=== PATIENT | male | born 1950 | race Caucasian/White ===

== ENCOUNTER 2019-08-17 21:40 | Inpatient (IN) | payer OTHER, BC ==
[2019-08-17 22:51] LABS: BASO % 0.7 % (0-2.0); EOS % 0.5 % (0-4.5); HEMATOCRIT 44.7 % (35.4-49); HEMOGLOBIN 15.2 GM/dL (11.7-16.9); LYMPH % 12.4 % (8-40); MCH 32.4 pg (25.7-33.7); MEAN CELL VOLUME 95.4 fl (80-96); MEAN PLT VOLUME 8.9 fl (7.5-11.1); MONO % 6.3 % (3.8-10.2); NEUT % 80.1 % (42.8-82.8); PLATELET COUNT 154 K/MM3 (134-434); RBC 4.68 M/mm3 (4.00-5.60); RDW 13.1 % (11.9-15.9); WHITE BLOOD COUNT 10.5 K/mm3 (4.0-10.0)
--- NOTE | 2019-08-17 22:58 | PDOC ---
History of Present Illness <Yesenia Rizzo - Last Filed: 08/18/19 01:07> - History of Present Illness Initial Comments: 08/19/19 22:31 69M PMH HTN, HLD, CHF (EF 30%), DM BIBEMS w/ crushing nonradiating substernal chest pain that occurred when pt was walking up stairs. DUring episode, pt felt short of breath. Experienced chest pain for about 5 minutes before receiving nitroglycerin, which completely resolved the pain and shortness of breath. Received 3 ASA en route. Currently not complaining of symptoms. Has had similar exertional symptoms in the past but no h/o ACS or stents. Pt lives in [place] w/ medical care there. Recently flew up to [place] for holidays and has been c/o MCDANIEL. Endorses chronic unchanged b/l LE edema. Denies n/v, headache, lightheadedness, dizziness, weakness. Denies abd pain. Of note, pt had just finished a large dinner 45 minutes prior to onset. NKDA 1.5PPD smoker Denies FHx cardiac dz <Efraín Gonzalez - Last Filed: 08/19/19 22:31> - General Chief Complaint: Chest Pain Stated Complaint: CHEST PAIN Time Seen by Provider: 08/17/19 21:50 Past History <Yesenia Rizzo - Last Filed: 08/18/19 01:07> - Psycho Social/Smoking Cessation Hx Smoking History: Current every day smoker Number of Cigarettes Smoked Daily: 30 Information on smoking cessation initiated: No Hx Alcohol Use: No Drug/Substance Use Hx: No <Efraín Gonzalez - Last Filed: 08/19/19 22:31> - Past Medical History Allergies/Adverse Reactions: Allergies Allergy/AdvReac Type Severity Reaction Status Date / Time No Known Allergies Allergy Verified 08/17/19 22:01 Home Medications: Ambulatory Orders Furosemide [Lasix -] 20 mg PO DAILY 08/18/19 Glimepiride [Amaryl -] 4 mg PO DAILY 08/18/19 Potassium Chloride [K-Tab ER] 20 meq PO DAILY 08/18/19 Rosuvastatin Calcium [Crestor] 10 mg PO HS 08/18/19 traZODone HCL [Trazodone HCl] 50 mg PO DAILY PRN 08/18/19 Review of Systems - Review of Systems Comments:: 08/19/19 22:31 ROS: CONSTITUTIONAL: Denies F / C HEENT: Denies headache, lightheadedness, dizziness, changes in vision / hearing RESP: Endorses since resolved SOB. Endorses recent MCDANIEL. CARD: Endorses since resolved chest pain GI: Denies N / V / D, abdominal pain : Denies dysuria SKIN: Denies rashes NEURO: Denies numbness, tingling, weakness MSK: Denies back pain <Efraín Gonzalez - Last Filed: 08/19/19 22:31> *Physical Exam - Vital Signs Last Vital Signs Temp Pulse Resp BP Pulse Ox 97.6 F 111 H 18 122/58 L 99 08/17/19 22:01 08/17/19 22:01 08/17/19 22:01 08/17/19 22:01 08/17/19 22:01 <Yesenia Rizzo Sovikimu - Last Filed: 08/18/19 01:07> - Vital Signs Last Vital Signs Temp Pulse Resp BP Pulse Ox 97.6 F 111 H 18 122/58 L 99 08/17/19 22:01 08/17/19 22:01 08/17/19 22:01 08/17/19 22:01 08/17/19 22:01 - Physical Exam 08/19/19 22:31 PE: GEN: NAD. AAOx3 HEENT: NC/AT, EOMI, PERRLA. No facial asymmetry. Normal voice. Supple neck w/ FROM. CV: S1/S2, RRR, no m/r/g LUNG: CTAB, no wheezes, crackles, rales, rhonchi. GI: soft, ndnt, +BS, no guarding, no rebound. EXTREMITIES: 2+ radial pulses. 1+ pitting edema of the b/l LEs (pt states chronic, unchanged). No obvious deformities of all extremities. SKIN: warm, dry, normal turgor PSYCH: normal mood and affect NEURO: Moving all extremities well. <Efraín Gonzalez - Last Filed: 08/19/19 22:31> Heart Score/ECG Review - History History: Moderately suspicious - Electrocardiogram EKG: Non specific repolarization disturbance - Age Age: >/= 65 - Risk Factors Risk Factors Heart Score: Yes Hx Hypercholesterolemia, Yes Hx Hypertension, Yes Hx Diabetes, Yes Smoking History Based on the list above the patient has:: >/=3 risk factors or Hx atherosclerotic disease - Troponin Troponin: </= normal limit - Score Heart Score - Total: 6 <Efraín Gonzalez - Last Filed: 08/19/19 22:31> ED Treatment Course - LABORATORY CBC & Chemistry Diagram: 08/17/19 22:40 08/17/19 23:45 - ADDITIONAL ORDERS Additional order review: Laboratory Results 08/18/19 08/17/19 08/17/19 00:00 23:45 23:45 PT with INR INR PTT (Actin FS) D-Dimer < 215 Sodium 138 Potassium 4.1 Chloride 103 Carbon Dioxide 26 Anion Gap 9 BUN 17.5 Creatinine 1.0 Est GFR (CKD-EPI)AfAm 89.23 Est GFR (CKD-EPI)NonAf 76.99 Random Glucose 181 H Calcium 8.4 L Magnesium 2.4 Total Bilirubin 0.4 AST 16 ALT 24 Alkaline Phosphatase 64 Creatine Kinase 125 Creatine Kinase Index CK-MB (CK-2) Troponin I 0.04 B-Natriuretic Peptide 1188.2 H Total Protein 6.7 Albumin 3.6 08/17/19 08/17/19 08/17/19 23:45 22:40 22:40 PT with INR 12.00 INR 1.02 PTT (Actin FS) 39.5 H D-Dimer Cancelled Sodium Potassium Chloride Carbon Dioxide Anion Gap BUN Creatinine Est GFR (CKD-EPI)AfAm Est GFR (CKD-EPI)NonAf Random Glucose Calcium Magnesium Cancelled Total Bilirubin AST ALT Alkaline Phosphatase Creatine Kinase Creatine Kinase Index CK-MB (CK-2) Troponin I B-Natriuretic Peptide Total Protein Albumin 08/17/19 08/17/19 22:40 22:40 PT with INR INR PTT (Actin FS) D-Dimer Sodium Cancelled Potassium Cancelled Chloride Cancelled Carbon Dioxide Cancelled Anion Gap Cancelled BUN Cancelled Creatinine Cancelled Est GFR (CKD-EPI)AfAm Cancelled Est GFR (CKD-EPI)NonAf Cancelled Random Glucose Cancelled Calcium Cancelled Magnesium Cancelled Total Bilirubin Cancelled AST Cancelled ALT Cancelled Alkaline Phosphatase Cancelled Creatine Kinase 423 H Creatine Kinase Index No Result Required. CK-MB (CK-2) No Result Required. Troponin I < 0.02 B-Natriuretic Peptide Total Protein Cancelled Albumin Cancelled 08/17/19 22:40 RBC 4.68 MCV 95.4 MCHC 34.0 RDW 13.1 MPV 8.9 Neutrophils % 80.1 Lymphocytes % 12.4 Monocytes % 6.3 Eosinophils % 0.5 Basophils % 0.7 - RADIOLOGY Radiology Studies Ordered: Category Date Time Status CHEST X-RAY PORTABLE* [RAD] Stat Radiology 08/17/19 22:03 Taken <Yesenia Rizzo - Last Filed: 08/18/19 01:07> - LABORATORY CBC & Chemistry Diagram: 08/19/19 06:14 08/19/19 06:14 <Efraín Gonzalez - Last Filed: 08/19/19 22:31> Medical Decision Making - Medical Decision Making 08/17/19 22:35 MDM: 69M HTN, HLD, CHF, DM, 1.5PPD smoker BIBEMS w/ exertional substernal chest pain relieved after nitro. Received ASA and nitro en route. Concerning hx for ACS. Given age, tachycardia, and recent travel considering VTE - CBC, CMP, Cardiac, Coag - EKG - CXR - Admit tele // ADMITTED Tele <Efraín Gonzalez - Last Filed: 08/19/19 22:31> Discharge - Discharge Information Problems reviewed: Yes - Admission Yes <Yesenia Rizzo - Last Filed: 08/18/19 01:07> - Discharge Information Problems reviewed: Yes <Efraín Gonzalez - Last Filed: 08/19/19 22:31> - Discharge Information Clinical Impression/Diagnosis: Chest pain Qualifiers: Chest pain type: chest pain due to myocardial ischemia Ischemic chest pain type : stable angina pectoris Qualified Code(s): I20.8 - Other forms of angina pectoris Condition: Guarded
--- NOTE | 2019-08-17 23:11 | PDOC ---
Documentation entered by Samantha Still SCRIBE, acting as scribe for Yesenia Rizzo MD. Yesenia Rizzo MD: This documentation has been prepared by the Tessy darling Nirvannie, SCRIBE, under my direction and personally reviewed by me in its entirety. I confirm that the documentation accurately reflects all work, treatment, procedures, and medical decision making performed by me. Attending Attestation - Resident Resident Name: Efraín Gonzalez - ED Attending Attestation I have performed the following: I have examined & evaluated the patient, The case was reviewed & discussed with the resident, I agree w/resident's findings & plan, Exceptions are as noted - HPI HPI: 08/17/19 23:22 69YOM with significant past medical history of hypertension, hyperlipidemia, DM , and currently being worked up for possible CHF (EF 30%) who presents to the ED via EMS with substernal, nonradiating chest pain described as a crushing sensation with associated shortness of breath while climbing approximately 20- 23 steps lasting 5 min. Patient notes his symptoms were relieved with Nitroglycerin and 243mg of Aspirin. Family at bedside notes he recently had dinner prior to the onset and on the car ride home prior to the chest pain he experienced an episode of left arm and finger numbness while on the 20 min car ride home after bracing it on the middle console. He notes a [address] from [place] which he stopped halfway and moved around. Patient is currently visiting from [place] and had medical clearance from his doctors, he was recently treated for URI symptoms with a Z-Pack. He has a pending appointment in [place] 09/12 with a animal care provider. While in the ED, patient notes his chest pain is a 0/10. Denies fever, chills, palpitations, dizziness, weakness, N, V, D, abdominal pain , bladder and bowel problems, leg swelling, No sick contacts. No new changes in medications. Allergies: None Past Medical History: Hypertension, hyperlipidemia, DM, and currently being worked up for possible CHF (EF 30%) Social history: Lives with family. +1.5 pack/day tobacco smoker. No ETOH or drug use. Surgical history: None reported. Meds: as documented in EMR PMD: [place]. - Physicial Exam PE: 08/17/19 23:11 Agree with the resident's HPI and PE as documented in the electronic medical record. NAD, well appearing, EOMI, PERRL, nl conjunctiva, anicteric; neck supple. lungs clear, +Tachycardic, abdomen soft nontender. +Ventral hernia. no rebound, guarding. Back nontender. [place] x4, no focal neuro deficits. 1+ LE edema. normal color for ethnicity, WWP. - Medical Decision Making 08/17/19 23:08 Vital Signs Temp Pulse Resp BP Pulse Ox 97.6 F 111 H 18 122/58 L 99 08/17/19 22:01 08/17/19 22:01 08/17/19 22:01 08/17/19 22:01 08/17/19 22:01 Vital signs notable for normotension, tachycardia 111 bpm, afebrile, no respiratory distress. DDx chest pain: ACS, coronary vasospasm, NSTEMI, arrhythmia, unstable angina, PE , dissection, PUD, esophageal spasm, GERD, gastritis, costochondritis, pneumonia , pleurisy, pericarditis/myocarditis. dehydration, electrolyte/metabolic derangements. PTX, CHF,pulmonary edema, pleurisy, pneumonia, viral syndrome. effusion. anemia, electrolyte/metabolic derangements. Considered but clinically doubt based on HPI and PE: Low suspicion for pulmonary embolism or dissection. EKG sinus tachycardia at 108 bpm, no interval abnormalities, narrow QRS, Q waves and TWI in III, AVF - no prior Chest pain HEART score 6 which denotes moderate risk for ACS Given risk factors including comorbidities, gender, family and tobacco use. ALREADY received nitro x1 SL and ASA full dose [employer] with EMS no active chest pain here dimer neg, unlikely PE initial trop neg, 2nd one after hemolyzed sample sent , uptrending to 0.04 , still neg. will need further trending/serials does not appear fluid overloaded, no diuresis for now. Plan for admit observation, possible Stress testing, to r/o ischemia, serial trops and EKG/tele monitoring for typical ACS vs CHF. ASA administered by EMS, pain controlled, discussion with patient and family at bedside, made aware of impression and plan, questions answered. admitting to Dr Gerardo, hospitalist. 08/18/19 01:08 08/18/19 01:09 Heart Score/ECG Review - History History: Moderately suspicious - Electrocardiogram EKG: Non specific repolarization disturbance - Age Age: >/= 65 - Risk Factors Risk Factors Heart Score: Yes Hx Hypercholesterolemia, Yes Hx Hypertension, Yes Hx Diabetes, Yes Smoking History Based on the list above the patient has:: >/=3 risk factors or Hx atherosclerotic disease - Troponin Troponin: </= normal limit - Score Heart Score - Total: 6 #1 ECG reviewed & interpreted by me at: 21:50 General ECG Interpretation: Sinus Rhythm, Normal Intervals Compared to previous ECG there are: Previous ECG unavail 08/17/19 23:12 EKG sinus tachycardia at 108 bpm, no interval abnormalities, narrow QRS, Q waves and TWI in III, AVF - no prior
[2019-08-18 00:17] LABS: INR 1.02 (0.83-1.09)
[2019-08-18 00:20] LABS: ACTIVATED PTT 39.5 SECONDS (25.2-36.5)
[2019-08-18 00:27] LABS: ALBUMIN 3.6 g/dl (3.4-5.0); BILIRUBIN,TOTAL 0.4 mg/dL (0.2-1); BLOOD UREA NITROGEN 17.5 mg/dL (7-18); CALCIUM 8.4 mg/dL (8.5-10.1); MAGNESIUM 2.4 mg/dL (1.8-2.4); POTASSIUM 4.1 mmol/L (3.5-5.1); TOT PROT 6.7 g/dl (6.4-8.2)
--- NOTE | 2019-08-18 01:22 | PN ---
Teaching Attending Note Name of Resident: Benito Hobbs ATTENDING PHYSICIAN STATEMENT I saw and evaluated the patient. I reviewed the resident's note and discussed the case with the resident. I agree with the resident's findings and plan as documented. SUBJECTIVE: Patient is a 69 year old man with a PMH of Hypertension, Hyperlipidemia, Tobacco use, NIDDM, and CHF (EF 30%) who presents to the ER via EMS with substernal, nonradiating chest pain described as a crushing sensation with associated shortness of breath while climbing approximately 20-23 steps lasting 5 min. Patient notes his symptoms were relieved with Nitroglycerin and Aspirin. Family at bedside notes he recently had dinner prior to the onset and on the car ride home prior to the chest pain he experienced an episode of left arm and finger numbness while on the 20 min car ride home after bracing it on the middle console. He notes a [address] from [place] which he stopped half- way and moved around. Patient is currently visiting from [place] and had medical clearance from his doctors. He was recently treated for URI symptoms with a Z-Pack. He has a pending appointment in [place] 09/12 with a motion picture commentator. While in the ER, patient notes his chest pain is a 0/10. Denies fever, chills, palpitations, dizziness, weakness, nausea, vomiting, diarrhea, abdominal pain, bladder and bowel problems, leg swelling, No sick contacts. No new changes in medications. Denies alcohol or illicit drug use. OBJECTIVE: Alert Vital Signs Period Temp Pulse Resp BP Sys/Sanchez Pulse Ox Last 24 Hr 97.6 F 111 18 122/58 99 HEENT: No Jaundice, eye redness or discharge, PERRLA, EOMI. Normocephalic, atraumatic. External ears are normal and hearing is grossly intact. No nasal discharge. Neck: Supple, nontender. No palpable adenopathy or thyromegaly. No JVD Chest: Good effort. Clear to auscultation and percussion. Heart: Regular. No S3, rub or murmur Abdomen: Not distended, soft, nontender and no HSM. No rebound or guarding. Normal bowel sounds. Ext: Peripheral pulses intact. Leg edema. Skin: Warm and dry. No petechiae, rash or ecchymosis. Neuro: Alert. Oriented x3. CN 2-12 grossly intact. Sensation grossly intact in all four extremities and DTR are symmetric. Psych: Appropriate mood and affect. Good insight. Abnormal Lab Results 08/17/19 08/17/19 08/17/19 22:40 22:40 23:45 WBC 10.5 H Absolute Neuts (auto) 8.4 H PTT (Actin FS) 39.5 H Random Glucose Calcium Creatine Kinase 423 H B-Natriuretic Peptide 08/17/19 08/17/19 23:45 23:45 WBC Absolute Neuts (auto) PTT (Actin FS) Random Glucose 181 H Calcium 8.4 L Creatine Kinase B-Natriuretic Peptide 1188.2 H Current Medications Generic Name Dose Route Start Last Admin Trade Name Freq PRN Reason Stop Dose Admin Enoxaparin Sodium 40 mg 08/18/19 10:00 Lovenox - SQ DAILY HAYDEN Furosemide 40 mg 08/18/19 03:28 Lasix Injection - IVPUSH 08/18/19 03:29 ONCE ONE Home Medications Medication Instructions Recorded Furosemide [Lasix -] 20 mg PO DAILY 08/18/19 Glimepiride [Amaryl -] 4 mg PO DAILY 08/18/19 Potassium Chloride [K-Tab ER] 20 meq PO DAILY 08/18/19 Rosuvastatin Calcium [Crestor] 10 mg PO HS 08/18/19 traZODone HCL [Trazodone HCl] 50 mg PO DAILY PRN 08/18/19 ASSESSMENT AND PLAN: 1. Chest pain - Now pain free. EKG shows sinus tachycardia with rate of 108, LAE , IRBBB and no significant ST-T wave changes. Initial troponin is negative. Will admit to telemetry to rule out ACS, get ECHO, fasting lipids, TSH and consult cardiology. No acute abnormality on CXR. Will give one dose of IV lasix 40 mg. Urinalysis pending. Will continue comprehensive care for all of patient s comorbid conditions. 2. DM For now, we will hold the home diabetes drugs and implement sliding scale insulin regimen. Provide comprehensive diabetes care with patient teaching and counseling about the importance of adherence to prescribed diabetes regimen, euglycemia, eye care and foot care. 3. Tobacco Use Counseled on risks associated with tobacco use. We will provide patient all the necessary assistance to facilitate smoking cessation and prescribe Nicotine patch. 4. Overweight Counseled on the risks associated with being overweight. Will provide patient all the necessary assistance, counseling and positive reinforcement to facilitate weight loss. Consult cork slabs sawyer. 5. Hypertension - Restart suitable outpatient antihypertensive drugs when clinically appropriate. Revise regimen to ensure [id number] excellent BP control and counselor at law patient on the injurious effects of uncontrolled hypertension. Nonpharmacologic measures to control hypertension like weight loss , salt restriction and exercise discussed. Importance of adherence to treatment regimen and attainment of normotension emphasized. 6. DVT prophylaxis - Lovenox 40 mg SQ q 24 hours. 7. Advance directives - Full code
[2019-08-18] MEDS ORDERED: FUROSEMIDE 40 MG/4 ML INJECTABLE VIAL IVPUSH ONE (03:28)
--- NOTE | 2019-08-18 03:29 | HP ---
CHIEF COMPLAINT: substernal chest pressure PCP: [place] PCP HISTORY OF PRESENT ILLNESS: 69M w/ pmh of recently dx HFrEF(~30%, May 2019 in [place]), HTN, HLD, NIDDM, PVD, BLE neuropathy BIBEMS after experiencing pressure-like substernal pain occurring at ~2044 which he was getting undressed and getting ready for bed. Admitted as ACS r/o. Was given ASA 81mg x4tab by his neice's boyfriend. When EMS arrived, pt received SL nitro which resolved the chest pressure w/in 5mins. Pt has had >1yr of similar chest pressure, associated with strenuous walking. Chest pressure would resolve with rest. Chronic chest pressure pompted PCP w/u w / May Echo showing "30% EF". Able to walk ~800ft. Had a stress test in 2005 as part of his pre-op w/u for his R hip surgery. Does not recall results. Patient endorses adherence with daily lasix. Tries to cut sodium from diet. Had [employer] at night of chest pain. Has chronic BLE burning pain and calf claudication for greater than 2ys. Was told to fu with a Vascular Surgeon. ER course was notable for: (1) EKG: sinus tachy 108, possible Left atrial enlargement (2) Troponin 0.04 (3) BNP 1188.2 (4) DDimer <215 (5) CXR --pending read but appears unremarkable Recent Travel: Flew from [place] to [facility] PAST MEDICAL HISTORY: HFrEF(~30%, May 2019 in [place]), HTN, HLD, NIDDM, PVD, BLE neuropathy PAST SURGICAL HISTORY: Right Hip Fx(2005) Social History: Smokin.5ppd x50ys Alcohol: occasionally, up to 4-5 mixed drinks or beers Drugs: denies Occupation: former [employer] Instructor Allergies No Known Allergies Allergy (Verified 08/17/19 22:01) HOME MEDICATIONS: Home Medications Medication Instructions Recorded Furosemide [Lasix -] 20 mg PO DAILY 08/18/19 Glimepiride [Amaryl -] 4 mg PO DAILY 08/18/19 Potassium Chloride [K-Tab ER] 20 meq PO DAILY 08/18/19 Rosuvastatin Calcium [Crestor] 10 mg PO HS 08/18/19 traZODone HCL [Trazodone HCl] 50 mg PO DAILY PRN 08/18/19 REVIEW OF SYSTEMS CONSTITUTIONAL: Absent: fever, chills, diaphoresis, generalized weakness, malaise, loss of appetite, weight change HEENT: Absent: rhinorrhea, nasal congestion, throat pain, throat swelling, difficulty swallowing, mouth swelling, ear pain, eye pain, visual changes CARDIOVASCULAR: mild pitting edema of BLE, shooting/burning pain of BLE, calf pain with walking, calf pain resolving with rest Absent: chest pain, syncope, palpitations, irregular heart rate, lightheadedness RESPIRATORY: Absent: cough, shortness of breath, dyspnea with exertion, orthopnea, wheezing, stridor, hemoptysis GASTROINTESTINAL: constipated Absent: abdominal pain, abdominal distension, nausea, vomiting, diarrhea, melena , hematochezia GENITOURINARY: Absent: dysuria, frequency, urgency, hesitancy, hematuria, flank pain, genital pain MUSCULOSKELETAL: Absent: myalgia, arthralgia, joint swelling, back pain, neck pain SKIN: Absent: rash, itching, pallor NEUROLOGIC: Absent: headache, focal weakness or paresthesias, dizziness, unsteady gait, seizure, mental status changes, bladder or bowel incontinence PSYCHIATRIC: Absent: anxiety, depression, suicidal or homicidal ideation, hallucinations. PHYSICAL EXAMINATION Vital Signs - 24 hr 08/17/19 08/17/19 08/18/19 22:01 22:40 02:15 Temperature 97.6 F Pulse Rate 111 H Pulse Rate [ 94 H Left Radial] Respiratory 18 16 Rate Blood Pressure 122/58 L Blood Pressure 116/52 L [Right Arm] O2 Sat by Pulse 99 97 97 Oximetry (%) GENERAL: Awake, alert, and fully oriented, in no acute distress. HEAD: NC/AT. EYES: sclera anicteric, conjunctiva clear. No lid lag. EARS, NOSE, THROAT: Ears normal, nares patent, oropharynx clear without exudates. Moist mucous membranes. NECK: Normal range of motion, supple without lymphadenopathy, JVD, or masses. LUNGS: Breath sounds equal, clear to auscultation bilaterally. No wheezes, and no crackles. No accessory muscle use. HEART: Regular rate and rhythm, normal S1 and S2 without murmur, rub or gallop. ABDOMEN: Soft, nontender, not distended, normoactive bowel sounds, no guarding, no rebound. Midline ventral bulge with valsalva MUSCULOSKELETAL: Normal range of motion at all joints. No bony deformities or tenderness. No CVA tenderness. UPPER EXTREMITIES: 2+ pulses, warm, well-perfused. No cyanosis. No clubbing. No peripheral edema. LOWER EXTREMITIES: 1+ pulses, warm, well-perfused. No calf tenderness. 1+ pitting edema of b/l mid soares NEUROLOGICAL: Cranial nerves II-XII intact. Normal speech. Normal gait. SKIN: Warm, dry, normal turgor, no rashes or lesions noted, normal capillary refill. Hyperpigmented distal lower extremities Laboratory Results - last 24 hr 08/17/19 08/17/19 08/17/19 22:40 22:40 22:40 WBC 10.5 H RBC 4.68 Hgb 15.2 Hct 44.7 MCV 95.4 MCH 32.4 MCHC 34.0 RDW 13.1 Plt Count 154 MPV 8.9 Absolute Neuts (auto) 8.4 H Neutrophils % 80.1 Lymphocytes % 12.4 Monocytes % 6.3 Eosinophils % 0.5 Basophils % 0.7 Nucleated RBC % 0 PT with INR INR PTT (Actin FS) D-Dimer Sodium Cancelled Potassium Cancelled Chloride Cancelled Carbon Dioxide Cancelled Anion Gap Cancelled BUN Cancelled Creatinine Cancelled Est GFR (CKD-EPI)AfAm Cancelled Est GFR (CKD-EPI)NonAf Cancelled Random Glucose Cancelled Calcium Cancelled Magnesium Cancelled Total Bilirubin Cancelled AST Cancelled ALT Cancelled Alkaline Phosphatase Cancelled Creatine Kinase 423 H Creatine Kinase Index No Result Required. CK-MB (CK-2) No Result Required. Troponin I < 0.02 B-Natriuretic Peptide Total Protein Cancelled Albumin Cancelled 08/17/19 08/17/19 08/17/19 22:40 22:40 23:45 WBC RBC Hgb Hct MCV MCH MCHC RDW Plt Count MPV Absolute Neuts (auto) Neutrophils % Lymphocytes % Monocytes % Eosinophils % Basophils % Nucleated RBC % PT with INR 12.00 INR 1.02 PTT (Actin FS) 39.5 H D-Dimer Cancelled Sodium Potassium Chloride Carbon Dioxide Anion Gap BUN Creatinine Est GFR (CKD-EPI)AfAm Est GFR (CKD-EPI)NonAf Random Glucose Calcium Magnesium Cancelled Total Bilirubin AST ALT Alkaline Phosphatase Creatine Kinase Creatine Kinase Index CK-MB (CK-2) Troponin I B-Natriuretic Peptide Total Protein Albumin 08/17/19 08/17/19 08/18/19 23:45 23:45 00:00 WBC RBC Hgb Hct MCV MCH MCHC RDW Plt Count MPV Absolute Neuts (auto) Neutrophils % Lymphocytes % Monocytes % Eosinophils % Basophils % Nucleated RBC % PT with INR INR PTT (Actin FS) D-Dimer < 215 Sodium 138 Potassium 4.1 Chloride 103 Carbon Dioxide 26 Anion Gap 9 BUN 17.5 Creatinine 1.0 Est GFR (CKD-EPI)AfAm 89.23 Est GFR (CKD-EPI)NonAf 76.99 Random Glucose 181 H Calcium 8.4 L Magnesium 2.4 Total Bilirubin 0.4 AST 16 ALT 24 Alkaline Phosphatase 64 Creatine Kinase 125 Creatine Kinase Index CK-MB (CK-2) Troponin I 0.04 B-Natriuretic Peptide 1188.2 H Total Protein 6.7 Albumin 3.6 ASSESSMENT/PLAN: 9M w/ pmh of recently dx HFrEF(~30%, May 2019 in [place]), HTN, HLD, NIDDM, PVD, BLE neuropathy BIBEMS after experiencing pressure-like substernal pain. Admitted for stable angina, and ACS r/o. # stable angina --symptomatically resolved > EKG: sinus tachy 108, possible Left atrial enlargement > CXR --pending read but appears unremarkable > DDimer <215 > Troponin 0.04; -- fu AM trop - telemetry # HFrEF --clinically volume overloaded in BLE > BNP 1188.2 > Echo --pending - s/p lasix 40 IVP x1 - monitor IOs # essential HTN --BP controlled - holding home meds until reconciliation # NIDDM > HbA1c --pending - ISS FEN - sodium-controlled/diabetic diet DVT PPX: - enoxparin 40mg Family Medical History Family History: Denies, Unremarkable Visit type - Emergency Visit Emergency Visit: Yes ED Registration Date: 08/18/19 Care time: The patient presented to the Emergency Department on the above date and was hospitalized for further evaluation of their emergent condition. - New Patient This patient is new to me today: Yes Date on this admission: 08/18/19 - Critical Care Critical Care patient: No ATTENDING PHYSICIAN STATEMENT I saw and evaluated the patient. I reviewed the resident's note and discussed the case with the resident. I agree with the resident's findings and plan as documented. SUBJECTIVE: OBJECTIVE: ASSESSMENT AND PLAN:
[2019-08-18 04:56] VITALS: BMI 29.2
[2019-08-18] MEDS: INSULIN (NOVOLOG) ASPART 100 UNITS/ML 10ML VIAL SQ SCH ×4 (06:53→22:14)
[2019-08-18 07:55] LABS: HEMATOCRIT 46.6 % (35.4-49); HEMOGLOBIN 15.8 GM/dL (11.7-16.9); MCH 32.3 pg (25.7-33.7); MCHC 33.9 g/dl (32.0-35.9); MEAN CELL VOLUME 95.1 fl (80-96); PLATELET COUNT 144 K/MM3 (134-434); RDW 12.9 % (11.9-15.9); WHITE BLOOD COUNT 7.7 K/mm3 (4.0-10.0)
[2019-08-18 08:14] LABS: BLOOD UREA NITROGEN 16.8 mg/dL (7-18); CALCIUM 8.7 mg/dL (8.5-10.1); MAGNESIUM 2.4 mg/dL (1.8-2.4); PHOSPHOROUS 3.1 mg/dL (2.5-4.9); POTASSIUM 4.3 mmol/L (3.5-5.1)
[2019-08-18] MEDS: ENOXAPARIN NA (PORCINE) 40 MG/0.4 ML DISP.SYRIN SQ SCH (09:09)
--- NOTE | 2019-08-18 09:45 | PN ---
Progress Note, Physician Chief Complaint: is chest pain free, doing well, no sob, - Current Medication List Current Medications: Active Medications Enoxaparin Sodium (Lovenox -) 40 mg SQ DAILY [facility] Last Admin: 08/18/19 09:09 Dose: 40 mg Insulin Aspart (Novolog Vial) 1 units SQ ACHS [facility]; Protocol Last Admin: 08/18/19 06:53 Dose: Not Given - Objective Vital Signs: Vital Signs Temperature 97.7 F 08/18/19 03:00 Pulse Rate 89 08/18/19 03:00 Respiratory Rate 20 08/18/19 03:00 Blood Pressure 132/63 08/18/19 03:00 O2 Sat by Pulse Oximetry (%) 95 08/18/19 03:00 Constitutional: Yes: Well Nourished Eyes: Yes: Conjunctiva Clear, EOM Intact HENT: Yes: WNL Neck: Yes: WNL, Trachea Midline Cardiovascular: Yes: Regular Rate and Rhythm Respiratory: Yes: Regular, CTA Bilaterally Extremities: Yes: WNL Edema: No Neurological: Yes: WNL Labs: CBC, BMP 08/18/19 06:59 08/18/19 06:59 INR, PTT INR 1.02 (0.83-1.09) 08/17/19 23:45 Impression/Plan Impression/Plan: 69M w/ pmh of recently dx HFrEF(~30%, May 2019 in [place]), HTN, HLD, NIDDM, PVD, BLE neuropathy BIBA after experiencing pressure-like substernal pain. Admitted for stable angina, and ACS r/o. # stable angina --symptomatically resolved EKG: sinus tachy 108, possible Left atrial enlargement CXR --negative, Troponin 0.04;0.17, on iv lasix, will get the cardiology consult, - - telemetry # HFrEF --clinically volume overloaded in BLE > BNP 1188.2 > Echo --pending - s/p lasix 40 IVP x1 - monitor IOs > HbA1c --pending - rISS monitor the sugars, FEN - sodium-controlled/diabetic diet DVT PPX: - enoxparin 40mg Visit type - Emergency Visit Emergency Visit: No - New Patient This patient is new to me today: Yes Date on this admission: 08/18/19 - Critical Care Critical Care patient: No - Discharge Referral Referred to [facility] Med P.C.: No
--- NOTE | 2019-08-18 10:04 | CON.CARD ---
Consult Consult Specialty:: Cardiology Referred by:: Hospitalist Medicine Reason for Consultation:: Chest pain - History of Present Illness Chief Complaint: Chest pain History of Present Illness: 69M w/ pmh of recently dx HFrEF(~30%, May 2019 in [place]), HTN, HLD, NIDDM, PVD, BLE neuropathy BIBEMS after experiencing pressure-like substernal pain occurring at ~2044 which he was getting undressed and getting ready for bed. Admitted as ACS r/o. Was given ASA 81mg x4tab by his nealma's boyfriend. When EMS arrived, pt received SL nitro which resolved the chest pressure w/in 5mins. Pt has had >1yr of similar chest pressure, associated with strenuous walking. Chest pressure would resolve with rest. Chronic chest pressure prompted PCP w/u w/ May Echo showing "30% EF". Able to walk ~800ft. Had a stress test in 2005 as part of his pre-op w/u for his R hip surgery. Does not recall results. Patient endorses adherence with daily lasix. Tries to cut sodium from diet. Had [employer] at night of chest pain. Has chronic BLE burning pain and calf claudication for greater than 2ys. Was told to f/u with a Vascular Surgeon. 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 Allergies No Known Allergies Allergy (Verified 08/17/19 22:01) - History Source History Provided By: Patient Limitations to Obtaining History: No Limitations - Alcohol/Substance Use Hx Alcohol Use: No - Smoking History Smoking history: Current every day smoker Aproximately how many cigarettes per day: 30 Home Medications - Allergies Allergies/Adverse Reactions: Allergies Allergy/AdvReac Type Severity Reaction Status Date / Time No Known Allergies Allergy Verified 08/17/19 22:01 - Home Medications Home Medications: Ambulatory Orders Furosemide [Lasix -] 20 mg PO DAILY 08/18/19 Glimepiride [Amaryl -] 4 mg PO DAILY 08/18/19 Potassium Chloride [K-Tab ER] 20 meq PO DAILY 08/18/19 Rosuvastatin Calcium [Crestor] 10 mg PO HS 08/18/19 traZODone HCL [Trazodone HCl] 50 mg PO DAILY PRN 08/18/19 Review of Systems - Review of Systems Cardiovascular: reports: Chest Pain, Shortness of Breath Respiratory: reports: SOB, SOB on Exertion Vital Signs: Vital Signs Temperature 97.7 F 08/18/19 03:00 Pulse Rate 89 08/18/19 03:00 Respiratory Rate 20 08/18/19 03:00 Blood Pressure 132/63 08/18/19 03:00 O2 Sat by Pulse Oximetry (%) 95 08/18/19 03:00 Constitutional: Yes: No Distress, Calm Neck: Yes: Supple Respiratory: Yes: Regular, CTA Bilaterally Gastrointestinal: Yes: Normal Bowel Sounds, Soft Cardiovascular: Yes: Regular Rate and Rhythm JVD: No Carotid Bruit: No Heart Sounds: Yes: S1, S2 Murmur: Yes: Systolic Murmur, Grade 1 Edema: No - Other Data Labs, Other Data: CBC, BMP 08/18/19 06:59 08/18/19 06:59 INR, PTT INR 1.02 (0.83-1.09) 08/17/19 23:45 Troponin, BNP 08/17/19 08/17/19 08/17/19 22:40 23:45 23:45 Troponin I < 0.02 0.04 B-Natriuretic Peptide 1188.2 H 08/18/19 06:59 Troponin I 0.17 H B-Natriuretic Peptide Troponin, BNP 08/17/19 08/17/19 08/17/19 22:40 23:45 23:45 Troponin I < 0.02 0.04 B-Natriuretic Peptide 1188.2 H 08/18/19 06:59 Troponin I 0.17 H B-Natriuretic Peptide NSR @ 90 LAE IRBBB Ejection Fraction %: LVEF < 40 % Imaging - Results Chest X-ray: Report Reviewed (NAD) Problem List - Problems (1) Acute on chronic systolic (congestive) heart failure Code(s): I50.23 - ACUTE ON CHRONIC SYSTOLIC (CONGESTIVE) HEART FAILURE (2) Type 2 diabetes mellitus Code(s): E11.9 - TYPE 2 DIABETES MELLITUS WITHOUT COMPLICATIONS Qualifiers: Diabetes mellitus alf insulin use: without alf use Diabetes mellitus complication status: with neurologic complications Diabetes mellitus complication detail: with unspecified neuropathy Qualified Code(s): E11.40 - Type 2 diabetes mellitus with diabetic neuropathy, unspecified (3) Hyperlipidemia associated with type 2 diabetes mellitus Code(s): E11.69 - TYPE 2 DIABETES MELLITUS WITH OTHER SPECIFIED COMPLICATION; E78.5 - HYPERLIPIDEMIA, UNSPECIFIED (4) Tobacco abuse Code(s): Z72.0 - TOBACCO USE (5) Claudication in peripheral vascular disease Code(s): I73.9 - PERIPHERAL VASCULAR DISEASE, UNSPECIFIED (6) Demand ischemia Code(s): I24.8 - OTHER FORMS OF ACUTE ISCHEMIC HEART DISEASE (7) Chest pain Code(s): R07.9 - CHEST PAIN, UNSPECIFIED Qualifiers: Chest pain type: chest pain due to myocardial ischemia Ischemic chest pain type: stable angina pectoris Qualified Code(s): I20.8 - Other forms of angina pectoris Assessment/Plan 1. Acute on chronic LV systolic failure (~30%, May 2019 in [place]) 2. CAD with demand ischemia 3. Type 2 DM c/w BLE neuropathy not at goal control 4, Hypertension 5. PAD 6. Tobacco abuse P:1. IV diuresis with monitor diuretic response, renal fxn and electrolytes 2. ASA 81 qd, Lipitor, carvedilol 3.125 bid, diovan pending LVEF reassessment 3. F/u echo, TSH, trend trops to document peak 4. Lexiscan Myoview once euvolemic to r/o ischemia, no ETT due to symptomatic PAD 5. Smoking cessation 6. Thank you for consultative opportunity
[2019-08-18] MEDS: ASPIRIN 81 MG CHEWABLE TABLETS PO SCH (12:38)
[2019-08-18] MEDS: CARVEDILOL 3.125 MG TABLET (FP) PO SCH ×2 (12:38→22:10)
--- NOTE | 2019-08-18 13:57 | EKG ---
Test Reason : Blood Pressure : / mmHG Vent. Rate : 090 BPM Atrial Rate : 090 BPM P-R Int : 168 ms QRS Dur : 096 ms QT Int : 390 ms P-R-T Axes : 056 065 023 degrees QTc Int : 477 ms NORMAL SINUS RHYTHM POSSIBLE LEFT ATRIAL ENLARGEMENT INCOMPLETE RIGHT BUNDLE BRANCH BLOCK BORDERLINE ECG WHEN COMPARED WITH ECG OF 17-AUG-2019 21:50, NO SIGNIFICANT CHANGE WAS FOUND Confirmed by EBONY MERCADO MD ([id number]) on 08/18/2019 1:57:27 PM Referred By: Schuyler HAMMER Confirmed By:EBONY MERCADO MD
--- NOTE | 2019-08-18 14:10 | EKG ---
Test Reason : Blood Pressure : / mmHG Vent. Rate : 108 BPM Atrial Rate : 108 BPM P-R Int : 148 ms QRS Dur : 096 ms QT Int : 364 ms P-R-T Axes : 054 084 006 degrees QTc Int : 487 ms SINUS TACHYCARDIA POSSIBLE LEFT ATRIAL ENLARGEMENT INCOMPLETE RIGHT BUNDLE BRANCH BLOCK NONSPECIFIC ST AND T WAVE ABNORMALITY BORDERLINE ECG NO PREVIOUS ECGS AVAILABLE Confirmed by EBONY MERCADO MD ([id number]) on 08/18/2019 2:10:16 PM Referred By: Confirmed By:EBONY MERCADO MD
[2019-08-18] MEDS: FUROSEMIDE 40 MG/4 ML INJECTABLE VIAL IVPUSH SCH (15:16)
[2019-08-18] MEDS: ROSUVASTATIN CA 10 MG TABLET (FP) PO SCH (22:10)
[2019-08-19] MEDS: FUROSEMIDE 40 MG/4 ML INJECTABLE VIAL IVPUSH SCH ×2 (06:32→13:16)
[2019-08-19] MEDS: INSULIN (NOVOLOG) ASPART 100 UNITS/ML 10ML VIAL SQ SCH ×4 (06:32→21:46)
[2019-08-19 07:04] LABS: BASO % 0.4 % (0-2.0); EOS % 2.4 % (0-4.5); HEMOGLOBIN 16.2 GM/dL (11.7-16.9); LYMPH % 19.2 % (8-40); MCHC 33.7 g/dl (32.0-35.9); MEAN CELL VOLUME 95.1 fl (80-96); MEAN PLT VOLUME 8.9 fl (7.5-11.1); PLATELET COUNT 158 K/MM3 (134-434); RBC 5.04 M/mm3 (4.00-5.60); RDW 13.2 % (11.9-15.9); WHITE BLOOD COUNT 7.3 K/mm3 (4.0-10.0)
[2019-08-19 07:23] LABS: ALBUMIN 3.8 g/dl (3.4-5.0); BILIRUBIN,TOTAL 0.7 mg/dL (0.2-1); BLOOD UREA NITROGEN 17.1 mg/dL (7-18); CALCIUM 8.8 mg/dL (8.5-10.1); CREATININE 1.1 mg/dL (0.55-1.3); POTASSIUM 4.1 mmol/L (3.5-5.1)
--- NOTE | 2019-08-19 09:39 | PN ---
Progress Note (short form) - Note Progress Note: Patient has no chest pain no shortness of breath no nausea vomiting. He admitted for chest pain and congestive heart failure was seen by the banquet food server in the hospital. He has negative cardiac enzymes and he is visiting from [place] over there he had an appointment to see banquet food server in August. But he ended up in the hospital with chest pain. Vital Signs Period Temp Pulse Resp BP Sys/Sanchez Pulse Ox Last 24 Hr 97.8 F-98.3 F 84-92 18-20 120-149/67-79 96-96 Physical examination HEENT normal neck supple positive JVD Lungs clear Heart S1-S2 positive S4 present no S3 Abdomen soft nontender Extremities no cyanosis clubbing edema. CBC, BMP 08/19/19 06:14 08/19/19 06:14 Laboratory Results - last 24 hr 08/18/19 08/18/19 08/18/19 12:38 17:06 22:10 WBC RBC Hgb Hct MCV MCH MCHC RDW Plt Count MPV Absolute Neuts (auto) Neutrophils % Lymphocytes % Monocytes % Eosinophils % Basophils % Nucleated RBC % Sodium Potassium Chloride Carbon Dioxide Anion Gap BUN Creatinine Est GFR (CKD-EPI)AfAm Est GFR (CKD-EPI)NonAf POC Glucometer 168 177 165 Random Glucose Calcium Total Bilirubin AST ALT Alkaline Phosphatase Creatine Kinase Troponin I Total Protein Albumin TSH 08/19/19 08/19/19 08/19/19 05:38 06:14 06:14 WBC 7.3 RBC 5.04 Hgb 16.2 Hct 48.0 MCV 95.1 MCH 32.0 MCHC 33.7 RDW 13.2 Plt Count 158 MPV 8.9 Absolute Neuts (auto) 5.1 Neutrophils % 70.0 Lymphocytes % 19.2 D Monocytes % 8.0 Eosinophils % 2.4 D Basophils % 0.4 Nucleated RBC % 0 Sodium 137 Potassium 4.1 Chloride 102 Carbon Dioxide 30 Anion Gap 5 L BUN 17.1 Creatinine 1.1 Est GFR (CKD-EPI)AfAm 79.52 Est GFR (CKD-EPI)NonAf 68.61 POC Glucometer 172 Random Glucose 164 H Calcium 8.8 Total Bilirubin 0.7 AST 22 ALT 29 Alkaline Phosphatase 64 Creatine Kinase Troponin I Total Protein 7.0 Albumin 3.8 TSH 2.74 08/19/19 06:14 WBC RBC Hgb Hct MCV MCH MCHC RDW Plt Count MPV Absolute Neuts (auto) Neutrophils % Lymphocytes % Monocytes % Eosinophils % Basophils % Nucleated RBC % Sodium Potassium Chloride Carbon Dioxide Anion Gap BUN Creatinine Est GFR (CKD-EPI)AfAm Est GFR (CKD-EPI)NonAf POC Glucometer Random Glucose Calcium Total Bilirubin AST ALT Alkaline Phosphatase Creatine Kinase 82 Troponin I 0.06 H Total Protein Albumin TSH Assessment and plan 69M w/ pmh of recently dx HFrEF(~30%, May 2019 in [place]), HTN, HLD, NIDDM, PVD, BLE neuropathy BIBA after experiencing pressure-like substernal pain. Admitted for stable angina, and ACS r/o He has been ruled out for acute myocardial infarction. He is chest pain-free at this time I have ordered a Lexiscan for him tomorrow.He is seen by banquet food server today Hypertension Stable continue Coreg Hyperlipidemia stable continue Crestor 10 mg daily Diabetes he is on NovoLog as needed according to the protocol for insulin coverage For congestive heart failure he is stable at this time continue Lasix 40 mg twice a day. Current Medications Aspirin (Asa -) 81 mg PO DAILY [facility] Last Admin: 08/18/19 12:38 Dose: 81 mg Carvedilol (Coreg -) 3.125 mg PO BID [facility] Last Admin: 08/18/19 22:10 Dose: 3.125 mg Enoxaparin Sodium (Lovenox -) 40 mg SQ DAILY [facility] Last Admin: 08/18/19 09:09 Dose: 40 mg Furosemide (Lasix Injection -) 40 mg IVPUSH BIDLASIX [facility] Last Admin: 08/19/19 06:32 Dose: 40 mg Insulin Aspart (Novolog Vial) 1 units SQ ACHS [facility]; Protocol Last Admin: 08/19/19 06:32 Dose: 1 units Rosuvastatin Calcium (Crestor -) 10 mg PO HS [facility] Last Admin: 08/18/19 22:10 Dose: 10 mg Visit type - Emergency Visit Emergency Visit: Yes ED Registration Date: 08/19/19 Care time: The patient presented to the Emergency Department on the above date and was hospitalized for further evaluation of their emergent condition. - New Patient This patient is new to me today: Yes Date on this admission: 08/19/19 - Critical Care Critical Care patient: No - Discharge Referral Referred to [facility] Med P.C.: No
[2019-08-19] MEDS: CARVEDILOL 3.125 MG TABLET (FP) PO SCH (09:40)
[2019-08-19] MEDS: ASPIRIN 81 MG CHEWABLE TABLETS PO SCH (09:40)
[2019-08-19] MEDS: ENOXAPARIN NA (PORCINE) 40 MG/0.4 ML DISP.SYRIN SQ SCH (09:40)
[2019-08-19] MEDS ORDERED: FUROSEMIDE 20 MG TABLET (FP) PO SCH (10:00)
--- NOTE | 2019-08-19 12:47 | PN ---
Progress Note, Physician History of Present Illness: Diuresing well, ambulates without MCDANIEL or chest pain. - Current Medication List Current Medications: Active Medications Aspirin (Asa -) 81 mg PO DAILY [facility] Last Admin: 08/19/19 09:40 Dose: 81 mg Carvedilol (Coreg -) 3.125 mg PO BID [facility] Last Admin: 08/19/19 09:40 Dose: 3.125 mg Enoxaparin Sodium (Lovenox -) 40 mg SQ DAILY [facility] Last Admin: 08/19/19 09:40 Dose: 40 mg Furosemide (Lasix Injection -) 40 mg IVPUSH BIDLASIX [facility] Last Admin: 08/19/19 06:32 Dose: 40 mg Insulin Aspart (Novolog Vial) 1 units SQ ACHS [facility]; Protocol Last Admin: 08/19/19 06:32 Dose: 1 units Rosuvastatin Calcium (Crestor -) 10 mg PO HS [facility] Last Admin: 08/18/19 22:10 Dose: 10 mg - Objective Vital Signs: Vital Signs Temperature 98.3 F 08/19/19 05:00 Pulse Rate 92 H 08/19/19 05:00 Respiratory Rate 20 08/19/19 05:00 Blood Pressure 133/67 08/19/19 05:00 O2 Sat by Pulse Oximetry (%) 96 08/18/19 20:47 Constitutional: Yes: No Distress, Calm, Thin Neck: Yes: Supple Cardiovascular: Yes: Regular Rate and Rhythm Respiratory: Yes: Regular, CTA Bilaterally Gastrointestinal: Yes: Normal Bowel Sounds, Soft Edema: No Labs: CBC, BMP 08/19/19 06:14 08/19/19 06:14 INR, PTT INR 1.02 (0.83-1.09) 08/17/19 23:45 Problem List - Problems (1) Acute on chronic systolic (congestive) heart failure Code(s): I50.23 - ACUTE ON CHRONIC SYSTOLIC (CONGESTIVE) HEART FAILURE (2) Type 2 diabetes mellitus Code(s): E11.9 - TYPE 2 DIABETES MELLITUS WITHOUT COMPLICATIONS Qualifiers: Diabetes mellitus [facility] insulin use: without [facility] use Diabetes mellitus complication status: with neurologic complications Diabetes mellitus complication detail: with unspecified neuropathy Qualified Code(s): E11.40 - Type 2 diabetes mellitus with diabetic neuropathy, unspecified (3) Hyperlipidemia associated with type 2 diabetes mellitus Code(s): E11.69 - TYPE 2 DIABETES MELLITUS WITH OTHER SPECIFIED COMPLICATION; E78.5 - HYPERLIPIDEMIA, UNSPECIFIED (4) Tobacco abuse Code(s): Z72.0 - TOBACCO USE (5) Claudication in peripheral vascular disease Code(s): I73.9 - PERIPHERAL VASCULAR DISEASE, UNSPECIFIED (6) Demand ischemia Code(s): I24.8 - OTHER FORMS OF ACUTE ISCHEMIC HEART DISEASE (7) Chest pain Code(s): R07.9 - CHEST PAIN, UNSPECIFIED Qualifiers: Chest pain type: chest pain due to myocardial ischemia Ischemic chest pain type: stable angina pectoris Qualified Code(s): I20.8 - Other forms of angina pectoris Assessment/Plan 1. Acute on chronic LV systolic failure (~30%, May 2019 in [place]) resolving 2. CAD with demand ischemia 3. Type 2 DM c/w BLE neuropathy not at goal control 4, Hypertension 5. PAD 6. Tobacco abuse P:1. Oral diuresis with monitor diuretic response, renal fxn and electrolytes 2. ASA 81 qd, Lipitor, increase carvedilol 6.25 bid, add Diovan 80 qd pending LVEF reassessment 3. F/u echo results, trops downtrending 4. Lexiscan Myoview to r/o ischemia, no ETT due to symptomatic PAD 5. Smoking cessation
[2019-08-19] MEDS ORDERED: CARVEDILOL 3.125 MG TABLET (FP) PO ONE (12:55)
[2019-08-19] MEDS: ROSUVASTATIN CA 10 MG TABLET (FP) PO SCH (21:46)
[2019-08-19] MEDS: CARVEDILOL 6.25 MG TABLET (FP) PO SCH (21:46)
[2019-08-20] MEDS: INSULIN (NOVOLOG) ASPART 100 UNITS/ML 10ML VIAL SQ SCH ×2 (06:12→12:31)
[2019-08-20] MEDS ORDERED: REGADENOSON 0.4 MG/5 ML PRE-FILLED SYRINGE IVPUSH ONE ×2 (09:59→11:15)
[2019-08-20] MEDS ORDERED: SPIRONOLACTONE 25 MG TABLET (FP) PO SCH (10:00)
--- NOTE | 2019-08-20 11:10 | PN ---
Progress Note, Physician Chief Complaint: Events noted Seen in cardiology Not in distress History of Present Illness: Patient was seen and examined. Awake and alert. Chart was reviewed Denies chest pain, SOB or palpitations - Current Medication List Current Medications: Active Medications Aspirin (Asa -) 81 mg PO DAILY [facility] Last Admin: 08/19/19 09:40 Dose: 81 mg Carvedilol (Coreg -) 6.25 mg PO BID [facility] Last Admin: 08/19/19 21:46 Dose: 6.25 mg Enoxaparin Sodium (Lovenox -) 40 mg SQ DAILY [facility] Last Admin: 08/19/19 09:40 Dose: 40 mg Insulin Aspart (Novolog Vial) [address] [facility]; Protocol Last Admin: 08/20/19 06:12 Dose: Not Given Rosuvastatin Calcium (Crestor -) 10 mg PO HS [facility] Last Admin: 08/19/19 21:46 Dose: 10 mg Spironolactone (Aldactone -) 25 mg PO DAILY [facility] - Objective Vital Signs: Vital Signs Temperature 97.5 F L 08/20/19 08:25 Pulse Rate 92 H 08/20/19 08:25 Respiratory Rate 18 08/20/19 08:25 Blood Pressure 148/74 08/20/19 08:25 O2 Sat by Pulse Oximetry (%) 96 08/19/19 21:00 Eyes: Yes: PERRL HENT: Yes: Atraumatic Neck: Yes: Supple Cardiovascular: Yes: Regular Rate and Rhythm, S1, S2 Respiratory: Yes: CTA Bilaterally Gastrointestinal: Yes: Normal Bowel Sounds, Soft. No: Tenderness Edema: No Additional Findings/Remarks: REVIEW OF SYSTEMS: CARD: (+) chest pain denies: SOB, palpitations LUNG: denies: shortness of breath, cough, sputum GI: denies: nausea, vomiting, diarrhea, abdominal pain MUSC: denies: joint pains NEURO: denies: headache, dizziness, seizures, syncope Labs: CBC, BMP 08/19/19 06:14 08/19/19 06:14 INR, PTT INR 1.02 (0.83-1.09) 08/17/19 23:45 Problem List - Problems (1) Acute on chronic systolic (congestive) heart failure Code(s): I50.23 - ACUTE ON CHRONIC SYSTOLIC (CONGESTIVE) HEART FAILURE (2) Chest pain Code(s): R07.9 - CHEST PAIN, UNSPECIFIED Qualifiers: Chest pain type: chest pain due to myocardial ischemia Ischemic chest pain type: stable angina pectoris Qualified Code(s): I20.8 - Other forms of angina pectoris (3) Claudication in peripheral vascular disease Code(s): I73.9 - PERIPHERAL VASCULAR DISEASE, UNSPECIFIED (4) Demand ischemia Code(s): I24.8 - OTHER FORMS OF ACUTE ISCHEMIC HEART DISEASE (5) Hyperlipidemia associated with type 2 diabetes mellitus Code(s): E11.69 - TYPE 2 DIABETES MELLITUS WITH OTHER SPECIFIED COMPLICATION; E78.5 - HYPERLIPIDEMIA, UNSPECIFIED (6) Tobacco abuse Code(s): Z72.0 - TOBACCO USE (7) Type 2 diabetes mellitus Code(s): E11.9 - TYPE 2 DIABETES MELLITUS WITHOUT COMPLICATIONS Qualifiers: Diabetes mellitus machine long goods helper insulin use: without machine long goods helper use Diabetes mellitus complication status: with neurologic complications Diabetes mellitus complication detail: with unspecified neuropathy Qualified Code(s): E11.40 - Type 2 diabetes mellitus with diabetic neuropathy, unspecified Assessment/Plan 1. Acute on chronic LV systolic failure 2. CAD with demand ischemia 3. Type 2 DM 4, Hypertension 5. PAD 6. Tobacco abuse PLAN: 1. Oral diuresis with monitoring renal function and electrolytes 2. ASA 81 mg QD, Crestor 10 mg QHS, Carvedilol 6.25 mg BID and Spironolactone 25 mg QD. ARB can be started pending LVEF reassessment 3. Echocardiography to assess LV/RV and valvular function 4. Lexiscan Myoview to r/o ischemia 5. Smoking cessation Further plans are to follow Ricardo Raymundo MD
--- NOTE | 2019-08-20 11:19 | PN ---
Progress Note (short form) - Note Progress Note: ATTENDING PHYSICIAN STATEMENT I saw and evaluated the patient. I reviewed the resident's note and discussed the case with the resident. I agree with the resident's findings and plan as documented. Independently reviewed all historical and PE findings as well as diagnostics. SUBJECTIVE: Remains on HFNC; weekend events noted. Discussed at length with resident team. 10 sys ROS done and negative aside from HPI VS, labs, imaging reviewed NAD AAO, resting in bed NC AT EOMI PERRLA Lungs without focal findings, w/ sym exp HR wnl, s1/2+ NT ND +BS CN2-12 wnl, no fnd Normal mood, appropriate behavior, not agitated Echo pending EKG reviewedx2 Assessment/Plan: Pending lexiscan; will review results. Disposition pending results and further discussion with CV. -Chest pain, typical cardiac, R/O ACS (checking MIBI) -Demand Ischemia -HFrEF (30% known in 05/2019 [place], repeat echo. On BB, may need TIESHA/ARB vs. entresto, FU clnical volume status. NYHA I sx at baseline so can consult detary , etc. and will help maximize self care to optimize functional status.) -Hx HTN (Monitor; deferrign mgmt to CV) -Hx HLD (Continue crestor per CV) -Hx DM with neuropathy (Increase neurontin if needed) -PAD (limits participation with ETT; checking arterial dopplers given claudication sx and can refer to Dr. 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 Feeling well; currently without chest pain. Vitals 08/20/19 08/20/19 08:25 09:00 Temperature 97.5 F L Pulse Rate 92 H Respiratory 18 Rate Blood Pressure 148/74 O2 Sat by Pulse 98 Oximetry (%) Physical Exam general: resting comfortably, sitting on bed HEENT: NCAT, PERRLA neck: supple cardio: S1, S2 RRR. no r/m/g pulm: CTA B/l. abdomen: obese, nontender, nondistended LE: 2+ pulses, no edema Laboratory Tests 08/17/19 08/17/19 08/18/19 22:40 23:45 06:59 POC Glucometer Troponin I < 0.02 0.04 0.17 H 08/19/19 08/20/19 06:14 06:06 POC Glucometer 189 Troponin I 0.06 H Imaging 08/17/19: CXR: no acute chest pathology 08/17/19: EKG: +sinus tach, rate 108bpm, 487ms. incomplete RBBB 08/18/19: EKG: NSR, rate 90bpm, Qtc 477ms. incomplete RBBB 08/20/19: Lexiscan: exercise: overall negative pharma nuclear stress test EKG, appropriate BP response. pt asymptomatic. no significant EKG changes. Nuclear results: moderate to large size inferior and inferolateral fixed defect from base to apex compatible w infarct. small to moderate size anteroapical reversible defect compatible w mild intensity ischemia. severely reduced LV systolic function with global hypokinesia and LV dilation and LV EF of 18%. Assessment/Plan 69 y/o M w/ pmh of recently dx HFrEF(~30%, May 2019 in [place]), HTN, HLD, NIDDM, PVD , BLE neuropathy BIBA after experiencing pressure-like substernal pain. Admitted for stable angina, and r/o ACS. #stable angina -trops have peaked, improving -lexiscan w/ ischemia, as above -d/w cardio; to start on valsartan 80mg qd. #acute on chronic HFrEF -f/u repeat ECHO -c/w baby asa, crestor, coreg, aldactone -started on ARB d/t LVEF assessment -daily wts, I/O, na control 2g #HLD -c/w crestor #NIDDM -hold home glimpiride -c/w ISS, BGM ACHS #F/E/N avoid IVF, as hx CHF continue to follow lytes NPO; as in process of lexiscan #PPX DVT: lovenox #Dispo monitoring on tele d/c based on cardio recs , stress test result <Cate Mendoza - Last Filed: 08/20/19 14:38>
[2019-08-20] MEDS ORDERED: INSULIN (NOVOLOG) ASPART 100 UNITS/ML 10ML VIAL ONE (12:41)
[2019-08-20] MEDS: CARVEDILOL 6.25 MG TABLET (FP) PO SCH (12:43)
[2019-08-20] MEDS: ASPIRIN 81 MG CHEWABLE TABLETS PO SCH (12:43)
[2019-08-20] MEDS: ENOXAPARIN NA (PORCINE) 40 MG/0.4 ML DISP.SYRIN SQ SCH (12:43)
[2019-08-20] MEDS ORDERED: VALSARTAN 80 MG TABLET (UD) PO SCH (14:15)
[2019-08-20 14:36] VITALS: BP 163/96; PULSE 115; TEMP 98
--- NOTE | 2019-08-20 15:01 | ECHO ---
Name: PANCHITO HUSTON Exam:Adult Echocardiogram Study Date: 08/20/2019 08:32 AM Age: 69 yrs Reason For Study: Acute on Chronic systolic CHF Height: 70 in Weight: 204 lb BSA: 2.1 m2 BP: 10/204 mmHg MMode/2D Measurements & Calculations IVSd: 1.1 cm Ao root diam: 2.7 cm LVIDd: 4.6 cm LA dimension: 3.5 cm LVIDs: 3.4 cm ACS: 1.8 cm LVPWd: 1.1 cm EDV(Teich): 96.5 ml LVOT diam: 1.8 cm ESV(Teich): 45.9 ml RV S Augie: 11.5 cm/sec Doppler Measurements & Calculations MV E max augie: 69.1 cm/sec Ao V2 max: 115.6 cm/sec MV A max augie: 109.8 cm/sec Ao max P.3 mmHg MV E/A: 0.63 Ao V2 mean: 90.6 cm/sec MV dec time: 0.18 sec Ao mean P.6 mmHg Ao V2 VTI: 26.2 cm NAYELY(I,D): 1.1 cm2 NAYELY(V,D): 1.3 cm2 LV V1 max P.3 mmHg MR max augie: 205.5 cm/sec LV V1 mean P.74 mmHg MR max P.9 mmHg LV V1 max: 58.0 cm/sec LV V1 mean: 40.8 cm/sec LV V1 VTI: 11.9 cm SV(LVOT): 30.0 ml TR max augie: 79.9 cm/sec TR max P.6 mmHg PA V2 max: 54.3 cm/sec Med Peak E' Augie: 4.0 cm/sec PA max P.2 mmHg Med E/e': 17.3 Lat Peak E' Augie: 4.4 cm/sec Lat E/e': 15.8 Procedure A complete two-dimensional transthoracic echocardiogram was performed (2D, M-mode, Doppler and color flow Doppler). Left Ventricle The left ventricle is mildly dilated. Left ventricular systolic function is severely reduced. Ejectio n Fraction = 20-25%. LV diastology reveals impaired relaxation with elevated filling pressure (E/E' 17) . There is severe global hypokinesis of the left ventricle. Right Ventricle The right ventricle is not well visualized. Atria The left atrial size is normal. Right atrial size is normal. Mitral Valve There is mild mitral annular calcification. There is mild mitral regurgitation. Tricuspid Valve The tricuspid valve is normal in structure and function. No tricuspid regurgitation. Aortic Valve There is mild aortic sclerosis.;. No aortic regurgitation is present. Pulmonic Valve The pulmonic valve is not well visualized. Great Vessels The aortic root is normal size. Pericardium/Pleura There is no pericardial effusion. Interpretation Summary The left ventricle is mildly dilated. Left ventricular systolic function is severely reduced. There is severe global hypokinesis of the left ventricle. Ejection Fraction = 20-25%. LV diastology reveals impaired relaxation with elevated filling pressure (E/E' 17) The right ventricle is not well visualized. The left atrial size is normal. Right atrial size is normal. There is mild mitral annular calcification. There is mild mitral regurgitation. There is mild aortic sclerosis. There is no pericardial effusion. Ricardo Raymundo MD 08/20/2019 03:00 PM
--- NOTE | 2019-08-20 18:45 | DS ---
Physical Exam: SUBJECTIVE: As soon as pt was about to be examined at bedside and info given concerning stress test result, pt states he is leaving AMA. "I can't wait in this hospital for so long." Test results and importance of staying explained to pt OBJECTIVE: Vital Signs Period Temp Pulse Resp BP Sys/Sanchez Pulse Ox Last 24 Hr 97.5 F-98.2 F 83-115 18-20 120-163/70-96 96-98 PHYSICAL EXAM refused LABS Laboratory Results - last 24 hr 08/19/19 08/20/19 08/20/19 21:45 06:06 12:30 POC Glucometer 234 189 183 Laboratory Tests 08/17/19 08/17/19 08/18/19 23:45 23:45 00:00 WBC RBC Hgb Hct MCV MCH MCHC RDW Plt Count PT with INR 12.00 INR 1.02 PTT (Actin FS) 39.5 H D-Dimer < 215 Random Glucose Hemoglobin A1c % Calcium Phosphorus Magnesium Total Bilirubin AST ALT Alkaline Phosphatase Creatine Kinase Troponin I B-Natriuretic Peptide 1188.2 H Albumin Triglycerides Cholesterol Total LDL Cholesterol HDL Cholesterol TSH 08/18/19 08/18/19 08/19/19 06:59 06:59 06:14 WBC 7.3 RBC 5.04 Hgb 16.2 Hct 48.0 MCV 95.1 MCH 32.0 MCHC 33.7 RDW 13.2 Plt Count 158 PT with INR INR PTT (Actin FS) D-Dimer Random Glucose Hemoglobin A1c % 7.9 H Calcium Phosphorus 3.1 Magnesium 2.4 Total Bilirubin AST ALT Alkaline Phosphatase Creatine Kinase Troponin I B-Natriuretic Peptide Albumin Triglycerides 173 H Cholesterol 135 Total LDL Cholesterol 75 HDL Cholesterol 32 L TSH 08/19/19 08/19/19 06:14 06:14 WBC RBC Hgb Hct MCV MCH MCHC RDW Plt Count PT with INR INR PTT (Actin FS) D-Dimer Random Glucose 164 H Hemoglobin A1c % Calcium 8.8 Phosphorus Magnesium Total Bilirubin 0.7 AST 22 ALT 29 Alkaline Phosphatase 64 Creatine Kinase 82 Troponin I 0.06 H B-Natriuretic Peptide Albumin 3.8 Triglycerides Cholesterol Total LDL Cholesterol HDL Cholesterol TSH 2.74 Imaging 08/17/19: CXR: no acute chest pathology 08/17/19: EKG: +sinus tach, rate 108bpm, 487ms. incomplete RBBB 08/18/19: EKG: NSR, rate 90bpm, Qtc 477ms. incomplete RBBB 08/20/19: Lexiscan: exercise: overall negative pharma nuclear stress test EKG, appropriate BP response. pt asymptomatic. no significant EKG changes. Nuclear results: moderate to large size inferior and inferolateral fixed defect from base to apex compatible w infarct. small to moderate size anteroapical reversible defect compatible w mild intensity ischemia. severely reduced LV systolic function with global hypokinesia and LV dilation and LV EF of 18%. HOSPITAL COURSE: Date of Admission:08/19/19 Date of Discharge: 08/20/19 69 y/o M w/ pmh of recently dx HFrEF(~30%, May 2019 in [place]), HTN, HLD, NIDDM, PVD , BLE neuropathy BIBA after experiencing pressure-like substernal pain. Admitted for stable angina, and r/o ACS. #stable angina -trops have peaked, improving -lexiscan w/ ischemia, as above -d/w cardio; to start on valsartan 80mg qd. d/c on, as pt left AMA - gave meds -will need cardiac cath, d/w pt at length - while in [place] (pt's home state) as well as close f/u with PCP, analysis manager explained risks of leaving, pt verbalized understanding #acute on chronic HFrEF -f/u repeat ECHO; pt left prior to this (AMA) -c/w baby asa, crestor, coreg, aldactone -sent home on -started on ARB d/t LVEF assessment -daily wts, I/O, na control 2g #HLD -c/w crestor #NIDDM -hold home glimpiride -c/w ISS, BGM ACHS #Dispo was to continue monitoring on tele per cardio recs however pt left AMA Minutes to complete discharge: 45 Discharge Summary Problems reviewed: Yes Reason For Visit: CHEST PAIN Condition: Guarded - Instructions Diet, Activity, Other Instructions: You were in the hospital for chest pain. While you were here, you had a stress test done and were found to have a negative pharmacologic nuclear stress EKG test, with appropriate blood pressure response, no symptoms, and no significant EKG changes, the gated perfusion scan and SPECT images revealed: a moderate to large size inferior and inferolateral defect from base to apex and small to moderate size anteroapical defect which reverses with rest. Left ventricular contraction by gated analysis reveals severely reduced left ventricle systolic function with global hypokinesia and calculated LV ejection fraction of 18% and LV dilation. You will need a cardiac catheterization procedure done in [place]/ where you choose. You must schedule this immediately. Medications You need to take the following medications at home, very important: 1. Aldactone 25mg daily 2. Aspirin 81mg daily 3. Coreg 6.25mg twice a day 4. Crestor 10mg at night (for cholesterol) 5. Valsartan 80 mg daily 6. You may continue your glimepiride. We have discontinued your lasix, trazodone for now Testing As above, you will need a cardiac cath to be scheduled immediately. You may also need to be evaluated for a defibrillator by your analysis manager. Care Please monitor your blood pressure at home. Follow up It is very important that you follow with the following doctors: 1. Your primary care physician - 1 week; if you do not have one and would like to see one in the area, we are referring you to Dr. Ford - within 3-4 days of your visit to discuss 2. A analysis manager in [place], while you are in the area you can follow with Dr. Raymundo- this week. Please see these doctors immediately, to come up with a plan. We were to monitor you in the hospital another night, per cardiology request, however you are leaving against medical advice (AMA). If you develop chest pain, or shortness of breath, please go to the hospital. Referrals: Abdulkadir Ford MD [Staff Physician] - 1 Week Ricardo Raymundo MD [Staff Physician] - 08/22/19 Disposition: AGAINST MEDICAL ADVICE - Home Medications Comprehensive Discharge Medication List: Ambulatory Orders Glimepiride [Amaryl -] 4 mg PO DAILY 08/18/19 Potassium Chloride [K-Tab ER] 20 meq PO DAILY 08/18/19 Aspirin [ASA -] 81 mg PO DAILY #30 tab.chew 08/20/19 Carvedilol [Coreg -] 6.25 mg PO BID #60 tablet 08/20/19 Rosuvastatin Calcium [Crestor] 10 mg PO HS #30 tablet 08/20/19 Rosuvastatin [Crestor -] 10 mg PO HS #30 tablet 08/20/19 Spironolactone [Aldactone -] 25 mg PO DAILY #30 tablet 08/20/19 Valsartan [Diovan] 80 mg PO DAILY #30 tablet 08/20/19 This patient is new to me today: Yes Date on this admission: 08/20/19 Emergency Visit: No Critical Care patient: No - Discharge Referral Referred to [facility] No
== END 2019-08-20 15:08 | disposition left against medical advice (07) | DRG 302 ==
LOC: JER 21:40 → JERBED 08-18 00:45 → J4W 08-18 03:08 → OBSVTOIN 08-19 13:16
PROVIDERS: ADMIT Internal Medicine; ATTEND Internal Medicine
DX: I25.10 Atherosclerotic heart disease of native coronary artery without angina pectoris (principal); I50.23 Acute on chronic systolic (congestive) heart failure; I24.8 Other forms of acute ischemic heart disease; F17.210 Nicotine dependence, cigarettes, uncomplicated; I11.0 Hypertensive heart disease with heart failure; E78.5 Hyperlipidemia, unspecified; E11.40 Type 2 diabetes mellitus with diabetic neuropathy, unspecified; I73.9 Peripheral vascular disease, unspecified; E66.3 Overweight; Z68.28 Body mass index [BMI] 28.0-28.9, adult; I25.5 Ischemic cardiomyopathy; R07.9 Chest pain, unspecified
CPT/HCPCS: 36415; 71045-TC-FY; 78452-TC; 80048; 80053; 80061; 82550; 82553; 82962; 83036; 83721; 83735; 83880; 84100; 84443; 84484; 85025; 85027; 85379; 85610; 85730; 93005; 93010; 93017; 93306-TC; 99285-25; A9502; G0378; J2785